=== PATIENT | male | born 1965 | race Caucasian/White ===

== ENCOUNTER 2017-06-23 22:41 | Emergency (ER) | payer BC ==
[~2017-06-23] VITALS: Ht 177.8 cm; Wt 86.6 kg
[2017-06-24 00:40] VITALS: BP 140/70
[2017-06-24] MEDS ORDERED: LIDOCAINE VISC 2% SOLN 15 ML UDC PO ONE (00:45)
[2017-06-24] MEDS ORDERED: BELLADONNA ALK/PHENOBARBITAL 5 ML UDC PO ONE (00:45)
[2017-06-24] MEDS ORDERED: MAGNESIUM/ALUMINUM/SIMETHICONE 30 ML UDC PO ONE (00:45)
[2017-06-24] MEDS ORDERED: VASOTEC5 MG PO (11:51)
[2017-06-24] MEDS ORDERED: LIPITOR20 MG (11:51)
== END 2017-06-24 00:22 | disposition home or self-care (01) ==
LOC: FSED 22:41
DX: R07.89 Other chest pain (principal); K21.9 Gastro-esophageal reflux disease without esophagitis; I10 Essential (primary) hypertension; E78.5 Hyperlipidemia, unspecified; F17.220 Nicotine dependence, chewing tobacco, uncomplicated
CPT/HCPCS: 71046; 80053; 81003; 82553; 83880; 84484; 85025; 93005; 99283

== ENCOUNTER 2017-06-24 10:44 | Emergency (ER) | payer BC ==
[~2017-06-24] VITALS: Ht 177.8 cm; Wt 93.0 kg
[2017-06-24] MEDS ORDERED: LIPITOR20 MG (11:51)
[2017-06-24] MEDS ORDERED: VASOTEC5 MG PO (11:51)
[2017-06-24] MEDS ORDERED: ASPIRIN 325 MG TAB PO ONE (12:00)
[2017-06-24 13:32] VITALS: BP 150/80
== END 2017-06-24 13:35 | disposition left against medical advice (07) ==
LOC: FSED 10:44
DX: R07.89 Other chest pain (principal); I10 Essential (primary) hypertension; E78.5 Hyperlipidemia, unspecified
CPT/HCPCS: 84484; 85379; 93005; 94760; 99283